=== PATIENT | female | born 1975 | race Caucasian/White ===

== ENCOUNTER 2021-08-07 14:11 | Outpatient (CLI) | payer OTHER ==
--- NOTE | 2021-08-07 16:39 | MRI Report ---
PROCEDURE: Chest W/O INDICATIONS: STERNUM - RIGHT STERNOCLAVICULAR JOINT PAIN COMPARISON: None. TECHNIQUE: The patient was placed supine in a body coil. Targeted T1 spin echo and fat-suppressed T2 fast spin e cho sequences were obtained in the axial, coronal, and sagittal planes centered at the right sternocl avicular joint. FINDINGS: Image quality: Excellent. No acute trabecular bone injury. Mild to moderate degenerative changes are seen at the right sternocl avicular joint. Minimal degenerative changes are seen at the left sternoclavicular joint. No associat ed osseous edema or subchondral cystic changes are seen. Mild to moderate degenerative changes are se en at the right acromioclavicular joint. The sternomanubrial joint appears normal. No focal soft tissue edema is seen. The thyroid appears normal. 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 Minimal left sterno clavicular osteoarthrosis. Reviewed by: London Pal MD on 08/07/2021 4:37 PM PST Approved by: London Pal MD on 08/07/2021 4:37 PM PST Station ID: [id number]
== END 2021-08-07 14:12 | disposition home or self-care (01) ==
LOC: DI 14:11
PROVIDERS: ATTEND Orthopaedic Surgery
DX: M19.012 Primary osteoarthritis, left shoulder (principal); M19.011 Primary osteoarthritis, right shoulder

== ENCOUNTER 2021-09-30 14:45 | Outpatient (CLI) | payer OTHER ==
--- NOTE | 2021-09-30 16:55 | XRAY Report ---
PROCEDURE: Knee 4 View LT INDICATIONS: LEFT KNEE PAIN TECHNIQUE: 4 views of the left knee(s) were acquired. COMPARISON: None. FINDINGS: Bones: No fractures or dislocations. No suspicious bony lesions. Mild left knee tricompartmental os teophytic degenerative changes. Soft tissues: No joint effusion. No suspicious soft tissue calcifications. IMPRESSION: Mild left knee tricompartmental osteoarthritis. Reviewed by: Jaimee Guerrero MD, PhD on 09/30/2021 4:54 PM PDT Approved by: Jaimee Guerrero MD, PhD on 09/30/2021 4:54 PM PDT Station ID: [id number]
== END 2021-09-30 23:59 | disposition home or self-care (01) ==
LOC: DI.WOS 14:45
PROVIDERS: ATTEND Physician Assistant
DX: M17.12 Unilateral primary osteoarthritis, left knee (principal)